=== PATIENT | female | born 1940 | race Caucasian/White ===

== ENCOUNTER 2017-06-01 05:25 | Day surgery (SDC) | payer OTHER, BC ==
[~2017-06-01] VITALS: Ht 154.9 cm; Wt 67.6 kg
--- NOTE | ~2017-06-01 | EKG ---
[address] [place] [address] ELECTROCARDIOGRAM REPORT Name: SINAN BENEDICT Room #: 150-5 [facility]#: [id number] Admission: 06/01/17 Attend Phys: Gm Wooten MD Discharge: Date of : 36 Report #: [id number] THIS REPORT FOR: //name// [facility] Test Date: 2017-06-01 Test Time: 12:06:42 Pat Name: SINAN BENEDICT Department: Room: 150 5 Gender: F [employer] Specialist: YOHANNES : 1940 Requested By: Gm Wooten Order Number: [id number] MD: Hernandez Oquendo Measurements Intervals [place] Rate: 99 P: 29 HI: 146 QRS: 3 QRSD: 79 T: 7 QT: 360 QTc: 462 Interpretive Statements Sinus rhythm Nonspecific ST segment abnormality No previous ECG available for comparison Electronically Signed On 06-01-2017 17:32:21 [employer] by Hernandez Oquendo [email or web address] <ELECTRONICALLY SIGNED> By: Hernandez Oquendo MD, [facility] 06/01/17 1732 1206 1206 Hernandez Oquendo MD, FACC /EPI
--- NOTE | ~2017-06-01 | O ---
[facility] [place] [address] OPERATIVE REPORT Name: SINAN BENEDICT Room #: DEP [facility]..#: [id number] Admission: 06/01/17 Attend Phys: Gm Wooten MD Discharge: 06/01/17 Date of : 36 Report #: [id number] THIS REPORT FOR: //name// CC: Dr. Gab Wooten DATE OF SERVICE: 06/01/2017 SURGEON: Gm Wooten MD MANAGER PHILOSOPHY: None. PREOPERATIVE DIAGNOSIS: Bilateral lower lid ectropion. POSTOPERATIVE DIAGNOSIS: Bilateral lower lid ectropion. OPERATION PERFORMED: Bilateral lower lid ectropion repair. ANESTHESIA: Local with IV sedation. COMPLICATIONS: None. INDICATIONS FOR PROCEDURE: This patient has bilateral acquired lower lid ectropion with chronic tearing and discharge. The current procedures are undertaken in order to improve the patient's visual function, lacrimal outflow, and level of comfort. Informed consent was obtained to include but not limit to the risk of loss of vision, bleeding, infection, scarring, failure to improve the problem and need for further surgery. DESCRIPTION OF OPERATION: The patient was taken to the operating room where 2% Xylocaine with epinephrine mixed with equal parts of 0.75% Marcaine with Wydase was administered transcutaneously and transconjunctivally to each lower lid and lateral canthal area. The patient was then prepped and draped in the usual sterile fashion. A Nakita clamp was then used to clamp the left lateral canthus following which a sharp canthotomy and cantholysis were performed. The tarsal strip was prepared laterally, removing the lash bearing portion of the redundant lid margin and the redundant tarsal plate. Hemostasis was achieved with a monopolar cautery, as it was throughout the case. The tarsal strip was then secured to the internal portion of the lateral orbital tubercle with two interrupted 5-0 Prolene sutures. The lateral canthal angle was sharply reformed as the subcutaneous structures and the skin were closed with multiple interrupted 6-0 plain gut sutures. Attention was then turned to the right side where the same procedure was [facility] [address] [place] [address] OPERATIVE REPORT Name: SINAN BENEDICT Room #: DEP [facility].#: [id number] Admission: 06/01/17 Attend Phys: Gm Wooten MD Discharge: 06/01/17 Date of : 36 Report #: [id number] performed. The wounds were cleaned and dressed with ophthalmic antibiotic ointment. The patient was then transported to the recovery area, having tolerated the procedure well with no anesthetic or operative complications being noted. <ELECTRONICALLY SIGNED> By: Gm Wooten MD 06/15/17 0614 1327 1604 Gm Wooten MD /nt
[~2017-06-01 05:25] MED LIST: ALBUTEROL INHAL17 GM IH; AMBIEN 10 MG TA10 MG PO; AMITRIPTYLINE H50 M2 OR; BENTYL 20 MG TA20 M1 PO; EFFEXOR75 MG PO; ESTRACE1 TUBE VAG; GABAPENTIN100 MG PO; HYDROCODONE-AP1 EAC6 PO; IBUPROFEN 800800 M1 PO; INDAPAMIDE2.5 MG PO; K-DUR 20 MEQ T20 MEQ PO; LOPRESSOR25 PO; NADOLOL 40 MG T40 M1 PO; NORCO 7.5-3251 EACH PO; PREDNISONE50 MG PO; PROAIR HFA8.5 GM IH; PROTONIX40 M1 PO; SYNTHROID50 MCG PO; UNKNOWN DIURETIC; VENTOLIN HFA 1818 GM INH; XANAX 0.5 MG0.5 M1 PO
[2017-06-01 12:30] VITALS: BP 149/66
[2017-06-18] MEDS ORDERED: NITROFURANTOIN100 MG PO (11:36)
== END 2017-06-01 14:15 | disposition home or self-care (01) ==
LOC: TBA 05:25 → OR 05:25
DX: H02.102 Unspecified ectropion of right lower eyelid (principal); H02.105 Unspecified ectropion of left lower eyelid; I10 Essential (primary) hypertension; J45.909 Unspecified asthma, uncomplicated; Z90.710 Acquired absence of both cervix and uterus; Z90.49 Acquired absence of other specified parts of digestive tract; Z98.890 Other specified postprocedural states; E03.9 Hypothyroidism, unspecified; F41.9 Anxiety disorder, unspecified; K21.9 Gastro-esophageal reflux disease without esophagitis; C56.9 Malignant neoplasm of unspecified ovary
CPT/HCPCS: 50010; 50101; 50386; 50398; 51636; 56527; 56531; 62110; 62850; 70005

== ENCOUNTER 2017-06-29 05:24 | Day surgery (SDC) | payer OTHER, BC ==
[~2017-06-29] VITALS: Ht 154.9 cm; Wt 68.0 kg
--- NOTE | ~2017-06-29 | O ---
[facility] [place] [address] OPERATIVE REPORT Name: SINAN BENEDICT Room #: DEP [facility]..#: [id number] Admission: 06/29/17 Attend Phys: Gm Wooten MD Discharge: 06/29/17 Date of : 36 Report #: [id number] THIS REPORT FOR: //name// CC: ANAIS Wooten DATE OF SERVICE: 06/29/2017 SURGEON: Gm Wooten M.D. ACTING INSTRUCTOR: None. PREOPERATIVE DIAGNOSIS: Bilateral upper lid dermatochalasia with superior visual field defect. POSTOPERATIVE DIAGNOSIS: Bilateral upper lid dermatochalasia with superior visual field defect. OPERATION PERFORMED: Bilateral upper lid functional blepharoplasty. ANESTHESIA: Local with IV sedation. COMPLICATIONS: None. INDICATIONS FOR SURGERY: This patient has acquired upper lid dermatochalasia with superior visual field loss both eyes because of excessive upper lid tissues to include skin and fat. Visual field testing demonstrates dense superior visual defects. Retesting with the upper lid elevated shows an improvement in visual field loss of over 30% and in excess of 12 degrees. The current procedures are undertaken in order to improve the patient's visual function. Informed consent was obtained to include but not limited to the loss of vision, bleeding, infection, scarring, failure to improve the problem and need for further surgery. DESCRIPTION OF OPERATION: The patient was taken to the operating room, where 2% Xylocaine with epinephrine mixed with equal parts of 0.75% Marcaine with Wydase was administered transcutaneously to each upper lid. The patient was then prepped and draped in the usual sterile fashion and a skin-marking pen was then utilized to outline an upper lid crease that was symmetrical on each side. Graefe forceps were then used to quantitate the redundant upper lid skin and it was similarly outlined. The incisions were then made with Jc scissors and a skin-muscle flap removed from each side with high-temp cautery. Hemostasis was achieved with the monopolar cautery as it was throughout the case. The [address] [address] OPERATIVE REPORT Name: SINAN BENEDICT Room #: DEP [facility]#: [id number] Admission: 06/29/17 Attend Phys: Gm Wooten MD Discharge: 06/29/17 Date of : 36 Report #: [id number] orbital septum was then identified and the central and medial fat pads were inspected. The redundant soft tissue was then sculpted with the monopolar cautery. The upper lid crease was then reformed with tightening of the pretarsal orbicularis muscle. The upper lid crease was then further reformed with multiple interrupted 6-0 chromic sutures. The skin was then closed with a running 6-0 plain gut suture. The wound was then cleaned and dressed with ophthalmic antibiotic ointment and a nonstick dressing. The patient was transported to the recovery area, where cold compresses were applied, having tolerated the procedure well with no anesthetic or operative complications being noted. <ELECTRONICALLY SIGNED> By: Gm Wooten MD 07/06/17 0616 1301 1309 Gm Wooten MD /nt
[~2017-06-29 05:24] MED LIST changes: +NITROFURANTOIN100 MG PO
[2017-06-29 12:13] VITALS: BP 143/77
== END 2017-06-29 14:11 | disposition home or self-care (01) ==
LOC: OR 05:24 → TBA 05:25 → OR 12:57
DX: H02.834 Dermatochalasis of left upper eyelid (principal); H02.831 Dermatochalasis of right upper eyelid; H53.462 Homonymous bilateral field defects, left side; H53.461 Homonymous bilateral field defects, right side; I10 Essential (primary) hypertension; J45.909 Unspecified asthma, uncomplicated; K21.9 Gastro-esophageal reflux disease without esophagitis; F41.8 Other specified anxiety disorders; Z85.43 Personal history of malignant neoplasm of ovary; Z90.710 Acquired absence of both cervix and uterus; Z90.49 Acquired absence of other specified parts of digestive tract; Z96.653 Presence of artificial knee joint, bilateral; Z79.899 Other long term (current) drug therapy; Z88.8 Allergy status to other drugs, medicaments and biological substances; Z79.891 Long term (current) use of opiate analgesic
CPT/HCPCS: 50010; 50101; 50386; 50398; 51636; 56531; 62110; 62850; 70005